=== PATIENT | male | born 1990 | race Caucasian/White ===

== ENCOUNTER 2024-06-13 11:38 | Emergency (ER) | payer MEDICAID, OTHER ==
[~2024-06-13] VITALS: Ht 165.1 cm; Wt 81.0 kg
[2024-06-13 11:58] VITALS: O2SAT 98
[2024-06-13 12:37] VITALS: BP 133/77; PULSE 61; RESP 16; TEMP 36.83628; O2SAT 98
== END 2024-06-13 12:37 | disposition home or self-care (01) ==
LOC: ER 11:48
DX: F11.23 Opioid dependence with withdrawal (principal); Z76.0 Encounter for issue of repeat prescription
CPT/HCPCS: 99281